=== PATIENT | male | born 1960 | race Asian ===

== ENCOUNTER 2018-06-18 12:11 | Day surgery (SDC) | payer OTHER ==
[2018-06-18] MEDS ORDERED: PROPOFOL 20 ML (13:00)
[2018-06-18] MEDS ORDERED: LIDOCAINE 100 MG SYRINGE (13:00)
== END 2018-06-18 15:55 | disposition home or self-care (01) ==
LOC: GIL 12:11
DX: K29.60 Other gastritis without bleeding (principal); Z90.3 Acquired absence of stomach [part of]; I10 Essential (primary) hypertension; E66.9 Obesity, unspecified; Z68.31 Body mass index [BMI] 31.0-31.9, adult; Z85.028 Personal history of other malignant neoplasm of stomach; E11.9 Type 2 diabetes mellitus without complications
CPT/HCPCS: 43239; 82962; 88305; 88312; 93005